=== PATIENT | female | born 1995 | race Caucasian/White ===

== ENCOUNTER 2018-10-08 06:35 | Emergency (ER) | payer SELFPAY, OTHER, MEDICAID ==
[2018-10-08] MEDS: ONDANSETRON (ODT) 4 MG TAB ODT (07:39)
[2018-10-08] MEDS: PROMETHAZINE/CODEINE 5ML CUP PO (07:44)
== END 2018-10-08 09:04 | disposition home or self-care (01) ==
LOC: FTE 06:35
DX: J06.9 Acute upper respiratory infection, unspecified (principal)
CPT/HCPCS: 71045; 81025; 99283-25